=== PATIENT | male | born 1990 | race Caucasian/White ===

== ENCOUNTER 2020-05-12 15:38 | Emergency (ER) | payer BC ==
[~2020-05-12] VITALS: Ht 177.8 cm; Wt 99.8 kg
[2020-05-12 15:38] VITALS: BP_SYST 131
[2020-05-12] MEDS ORDERED: MORPHINE 4 MG/ML INJ. SYRINGE IVP ONE (16:15)
[2020-05-12] MEDS ORDERED: ONDANSETRON HCL 4 MG/2 ML VIAL IVP ONE (16:15)
[2020-05-12] MEDS ORDERED: MORPHINE 4 MG/ML INJ. SYRINGE ONE (16:17)
[2020-05-12] MEDS ORDERED: ONDANSETRON HCL 4 MG/2 ML VIAL ONE (16:18)
[2020-05-12 19:05] VITALS: BP_SYST 131
== END 2020-05-12 19:05 | disposition home or self-care (01) ==
LOC: SED 15:38
DX: R56.9 Unspecified convulsions (principal); M54.5 Low back pain; W18.39XA Other fall on same level, initial encounter; Y93.89 Activity, other specified; Y92.89 Other specified places as the place of occurrence of the external cause; Y99.8 Other external cause status
CPT/HCPCS: 70450; 72131; 76376; 96374; 96375; 99285; J2270; J2405

== ENCOUNTER 2021-12-03 07:43 | Emergency (ER) | payer BC ==
[~2021-12-03] VITALS: Ht 170.2 cm; Wt 68.0 kg
[2021-12-03 07:53] VITALS: BP_SYST 137
[2021-12-03] MEDS ORDERED: levETIRAcetam 500 MG IV PREMIX 100 ML IV ONE (08:00)
[2021-12-03 08:14] LABS: BASOPHILS # (AUTO) 0.2 K/uL (0.0-0.2); BASOPHILS % (AUTO) 1.9 % (0.0-2.0); HEMATOCRIT 41.6 % (36-54); HEMOGLOBIN 14.2 g/dL (14.0-18.0); LYMPHOCYTES # (AUTO) 0.8 K/uL (1.0-5.5); LYMPHOCYTES % (AUTO) 7.8 % (20.5-51.5); MEAN CORPUSCULAR HEMOGLOBIN 29 pg (27-31); MEAN CORPUSCULAR HGB CONC 34 % (32-36); MEAN CORPUSCULAR VOLUME 85 fL (79.0-98.0); MONOCYTES # (AUTO) 0.8 K/uL (0.0-1.0); MONOCYTES % (AUTO) 7.7 % (1.7-9.3); NEUTROPHILS # (AUTO) 8.7 K/uL (1.8-7.7); NEUTROPHILS % (AUTO) 82.6 % (40.0-70.0); PLATELET COUNT (AUTO) 197 K/uL (130-430); RED BLOOD CELL COUNT(AUTO) 4.91 MIL/uL (4.2-6.2); RED CELL DISTRIBUTION WIDTH 13.2 % (9.0-15.0); WHITE BLOOD COUNT (AUTO) 10.6 K/uL (4.8-10.8)
[2021-12-03 08:27] LABS: CALCIUM 8.6 mg/dL (8.4-11.0); CREATININE 1.13 mg/dL (0.55-1.30); POTASSIUM 3.3 mmol/L (3.5-5.1)
[2021-12-03 08:32] LABS: ALBUMIN 4.2 g/dL (3.4-4.8); TOTAL BILIRUBIN 0.8 mg/dL (0.0-1.0)
[2021-12-03] MEDS ORDERED: TRAM50TA2 PO (10:33)
[2021-12-03 12:33] VITALS: BP_SYST 126
== END 2021-12-03 12:33 | disposition home or self-care (01) ==
LOC: SED 07:43
DX: S02.2XXA Fracture of nasal bones, initial encounter for closed fracture (principal); R56.9 Unspecified convulsions; X58.XXXA Exposure to other specified factors, initial encounter; Y93.89 Activity, other specified; Y92.89 Other specified places as the place of occurrence of the external cause; Y99.8 Other external cause status
CPT/HCPCS: 36415; 70160; 80053; 85025; 96365; 99284; J1953